=== PATIENT | female | born 1945 | race Two or more races ===

== ENCOUNTER 2025-05-28 21:18 | Emergency (ER) | payer OTHER ==
[~2025-05-28] VITALS: Ht 160 cm; Wt 81.6 kg
[2025-05-28 22:00] VITALS: BP 138/54; O2SAT 95
[2025-05-28] MEDS: PIPERACILLIN /TAZOBACTAM 3.375 G in IV D5W 50 ML IV ONE (22:00)
[2025-05-28] MEDS ORDERED: PIPERACI/TAZO 3.375GM/D5W 50ML PB IV ONE (22:05)
[2025-05-28] MEDS ORDERED: VANCOMYCIN 1 GM /D5W 250 ML PB IV ONE (22:05)
[2025-05-28] MEDS ORDERED: ACETAMINOPHEN ES 500 MG TABLET ONE (22:05)
[2025-05-28] MEDS: IV NS 0.9% 1,000 ML BAG IV ONE (22:10)
[2025-05-28 22:16] VITALS: TEMP 101.8
[2025-05-28] MEDS: ACETAMINOPHEN ES 500 MG TABLET PO ONE (22:16)
[2025-05-28 22:26] LABS: PLATELET COUNT (AUTO) 263 K/uL (150-450); RED BLOOD CELL COUNT(AUTO) 2.44 MIL/uL (4.0-5.2); RED CELL DISTRIBUTION WIDTH 13.5 % (11.5-15.0); WHITE BLOOD COUNT (AUTO) 16.7 K/uL (4.3-11.0)
[2025-05-28 22:28] LABS: LACTIC ACID 1.4 mmol/L (0.4-2.0)
[2025-05-28 22:32] LABS: INR 0.99 (0.91-1.10)
[2025-05-28 22:34] LABS: ASPARTATE AMINOTRANSFERASE 43 U/L (15-37); CALCIUM, SERUM 9.1 mg/dL (8.5-10.1); CREATININE 0.6 mg/dL (0.6-1.3); SODIUM SERUM 134 mmol/L (136-145); TOTAL PROTEIN, SERUM 7.6 g/dL (6.4-8.2); UREA NITROGEN, BLOOD 26 mg/dL (7-18)
[2025-05-28] MEDS: VANCOMYCIN 1 GM in IV D5W 250 ML IV ONE (22:38)
[2025-05-28 23:44] LABS: APPEARANCE,URINE CLOUDY (CLEAR); BLOOD, URINE TRACE-INTA Ery/uL (NEGATIVE); LEUKOCYTE ESTERASE ,URINE 2+ (NEGATIVE); NITRITE, URINE POSITIVE (NEGATIVE); UGLUCOSE TRACE mg/dL (NEGATIVE)
[2025-05-28 23:46] LABS: ADD URINE CULTURE YES; SQUAMOUS EPITHELIAL CELL,UR Rare /HPF (None Seen)
[2025-05-29] MEDS ORDERED: ACETAMINOPHEN 325 MG/SUPP.RECT RC ONE (01:57)
[2025-05-29] MEDS: ACETAMINOPHEN 650 MG/SUPP.RECT RC ONE (01:58)
== END 2025-05-29 02:03 | disposition short-term general hospital (02) ==
LOC: ER 21:20
DX: N12 Tubulo-interstitial nephritis, not specified as acute or chronic (principal); R50.9 Fever, unspecified; Z86.2 Personal history of diseases of the blood and blood-forming organs and certain disorders involving the immune mechanism; Z20.822 Contact with and (suspected) exposure to COVID-19
CPT/HCPCS: 99285; 96365; 71045; 96361; 96375; 87426; 93005; 84145; 85025; 80048; 87040 ×2; 87086; 83605; 80076; 81001; 36415; 84484; 85730; J3373 ×2; J2543 ×2; J7060; J7030; J7040; A4223 ×2; 87186-TC

== ENCOUNTER 2025-09-06 22:07 | Emergency (ER) | payer OTHER, MEDICAID ==
[~2025-09-06] VITALS: Ht 157.5 cm; Wt 81.6 kg
[2025-09-06] MEDS: IV NS 0.9% 1,000 ML BAG IV ONE (22:40)
[2025-09-06 22:46] LABS: PLATELET COUNT (AUTO) 144 K/uL (150-450); RED BLOOD CELL COUNT(AUTO) 2.67 MIL/uL (4.0-5.2); RED CELL DISTRIBUTION WIDTH 14.0 % (11.5-15.0); WHITE BLOOD COUNT (AUTO) 11.0 K/uL (4.3-11.0)
[2025-09-06 22:54] LABS: CALCIUM, SERUM 8.8 mg/dL (8.5-10.1); CREATININE 0.8 mg/dL (0.6-1.3); SODIUM SERUM 127.0 mmol/L (136-145); UREA NITROGEN, BLOOD 32.0 mg/dL (7-18)
[2025-09-06 23:00] LABS: ASPARTATE AMINOTRANSFERASE 75.0 U/L (15-37); TOTAL PROTEIN, SERUM 6.9 g/dL (6.4-8.2)
[2025-09-06 23:02] LABS: LACTIC ACID 1.2 mmol/L (0.4-2.0)
[2025-09-06 23:04] LABS: INR 1.01 (0.91-1.10)
[2025-09-06] MEDS ORDERED: INSULIN REGULAR, HUMAN 100 UNIT/ML 10 ML VIAL ONE (23:26)
[2025-09-06] MEDS ORDERED: DEXTROSE 50%-WATER 50 ML DISP.SYRIN ONE (23:26)
[2025-09-06] MEDS ORDERED: CALCIUM CHLORIDE 1,000 MG/10 ML DISP.SYRIN ONE (23:26)
[2025-09-06] MEDS ORDERED: ACETAMINOPHEN ES 500 MG TABLET ONE (23:26)
[2025-09-06] MEDS: CALCIUM CHLORIDE 1,000 MG/10 ML DISP.SYRIN IV ONE (23:53)
[2025-09-06] MEDS: ACETAMINOPHEN ES 500 MG TABLET PO ONE (23:53)
[2025-09-06] MEDS: INSULIN REGULAR, HUMAN 100 UNIT/ML 10 ML VIAL IV ONE (23:54)
[2025-09-06] MEDS: DEXTROSE 50%-WATER 50 ML DISP.SYRIN IV ONE (23:54)
[2025-09-07 01:54] LABS: APPEARANCE,URINE SLIGHTLY CLOUDY (CLEAR); BLOOD, URINE 2+ Ery/uL (NEGATIVE); LEUKOCYTE ESTERASE ,URINE 2+ (NEGATIVE); NITRITE, URINE NEGATIVE (NEGATIVE); UGLUCOSE NEGATIVE (NEGATIVE)
[2025-09-07 02:01] LABS: ADD URINE CULTURE YES; SQUAMOUS EPITHELIAL CELL,UR 21-50 /HPF (None Seen)
[2025-09-07 02:03] LABS: COARSE GRANULAR CASTS,URINE Few /LPF (None Seen)
[2025-09-07] MEDS ORDERED: CEFTRIAXONE 1GM BAG (ER ONLY) 50 ML IV ONE (02:55)
[2025-09-07] MEDS: IV NS 0.9% 1,000 ML BAG IV ONE (03:07)
[2025-09-07] MEDS: CEFTRIAXONE 1 G in IV D5W 50 ML IV ONE (03:08)
[2025-09-07 04:29] LABS: CALCIUM, SERUM 9.1 mg/dL (8.5-10.1); CREATININE 0.7 mg/dL (0.6-1.3); SODIUM SERUM 128.0 mmol/L (136-145); UREA NITROGEN, BLOOD 30.0 mg/dL (7-18)
[2025-09-07 06:00] VITALS: BP 138/53; TEMP 98.5; O2SAT 96
== END 2025-09-07 07:22 | disposition short-term general hospital (02) ==
LOC: ER 22:10
DX: N39.0 Urinary tract infection, site not specified (principal); R50.9 Fever, unspecified; E87.5 Hyperkalemia; I10 Essential (primary) hypertension; E11.9 Type 2 diabetes mellitus without complications; E78.5 Hyperlipidemia, unspecified; Z20.822 Contact with and (suspected) exposure to COVID-19
CPT/HCPCS: 99291; 96375; 71045; 96361; 93005; 84145; 85025; 80048 ×2; 87040 ×2; 83605; 80076; 83735; 36415 ×2; 85730; 86140; 96365; 87426; 87804 ×2; 81001; 87420; 82962; J3490; J1815; J7030; J0696; 87086-TC; 87186-TC